=== PATIENT | female | born 1990 ===

== ENCOUNTER 2018-04-18 18:48 | Emergency (ER) | payer MEDICAID ==
[2018-04-18 19:05] VITALS: BP 104/68; PULSE 96; RESP 20; TEMP 99.8; O2SAT 100
[2018-04-18 20:17] LABS: SQUAMOUS EPITHIAL 6 /hpf (0-5); URINE BACTERIA RARE (<OCC); URINE BILIRUBIN NEGATIVE (NEGATIVE); URINE BLOOD 2+ (NEGATIVE); URINE CLARITY Hazy (Clear); URINE COLOR Yellow (YELLOW); URINE GLUCOSE (UA) NORMAL (Normal); URINE LEUKOCYTE ESTERASE 3+ Leu/uL (Negative); URINE PROTEIN NEGATIVE (NEGATIVE); URINE UROBILINOGEN NORMAL mg/dL (0.2-1.0)
--- NOTE | 2018-04-18 20:26 | C.PDOC ---
History Of Present Illness 27 y/o female presents to the ED complaining of worsening dysuria over the past 2 weeks. She also noticed light pink discharge when wiping this morning. Of note patient is currently , approximately 16 weeks gestational age, and has regular OB follow up. Her last ultrasound was 2 weeks ago, and was normal. Patient was seen here on 04/03 with mild UTI, and prescribed Macrobid with relief of symptoms. She has been trying [id number] UTI medication for the past week. Otherwise patient denies any fevers, chills, incontinence, hematuria, or abdominal pain. Time Seen by Provider: 04/18/18 19:23 Chief Complaint (Nursing): Female Genitourinary History Per: Patient History/Exam Limitations: no limitations Onset/Duration Of Symptoms: Days Current Symptoms Are (Timing): Still Present : 2 Para: 1 Past Medical History Reviewed: Historical Data, Nursing Documentation, Vital Signs Vital Signs: Last Vital Signs Temp 99.8 F H 04/18/18 19:05 Pulse 96 H 04/18/18 19:05 Resp 20 04/18/18 19:05 BP 104/68 04/18/18 19:05 Pulse Ox 100 04/18/18 20:39 - Medical History PMH: No Chronic Diseases Surgical History: No Surg Hx Family History: States: No Known Family Hx - Social History Hx Alcohol Use: No Hx Substance Use: No - Immunization History Hx Tetanus Toxoid Vaccination: No Hx Influenza Vaccination: No Review Of Systems Except As Marked, All Systems Reviewed And Found Negative. Constitutional: Negative for: Fever, Chills Gastrointestinal: Negative for: Abdominal Pain Genitourinary: Positive for: Dysuria, Vaginal Discharge. Negative for: Incontinence, Hematuria Physical Exam - Physical Exam Appears: Non-toxic, No Acute Distress Skin: Normal Color, Warm, Dry Head: Atraumatic, Normacephalic Eye(s): bilateral: Normal Inspection, PERRL, EOMI Nose: Normal Oral Mucosa: Moist Neck: Normal ROM, Supple Chest: Symmetrical Cardiovascular: Rhythm Regular, No Murmur Respiratory: Normal Breath Sounds, No Rales, No Rhonchi, No Wheezing Gastrointestinal/Abdominal: Soft, No Tenderness, Other (Gravid abdomen, consistent w/ 16 weeks gestation) Back: Normal Inspection, No CVA Tenderness, No Vertebral Tenderness Extremity: Bilateral: Atraumatic, Normal Color And Temperature, Normal ROM Pulses: Left Dorsalis Pedis: Normal, Right Dorsalis Pedis: Normal Neurological/Psych: Oriented x3, Normal Speech, Other (No focal deficits) Gait: Steady ED Course And Treatment O2 Sat by Pulse Oximetry: 100 (RA) Pulse Ox Interpretation: Normal Medical Decision Making Medical Decision Making: Initial Impression: 27 y/o female with UTI in Time: 19:39 Initial Plan: * Urinalysis * Urine culture * heart tones Labs reviewed, uA is indicative of UTI 20:23 Treated with pyrimidine and macrobid Progress/Updates: persistent UTI and , +FHT's 152 defer emergency preg US at this time Lab results and diagnosis discussed w/ patient. Patient is agreeable to and understanding of discharge plan. Advised to follow up with OB or return to the ER for any worsening symptoms. Disposition Doctor Will See Patient In The: Office Counseled Patient/Family Regarding: Studies Performed, Diagnosis - Disposition Referrals: Stephen Soares MD [Staff Provider] - Disposition: HOME/ ROUTINE Disposition Time: 20:26 Condition: GOOD Additional Instructions: sigue Macrobid (antibiotico) dos veces al lima por shell semana. no martina antes de terminar la receta Pyridium 100 mg (para dolor de orinar) 1 tableta cada 6 horas mehrdad necessario Cindy muchos liquidos Sigue con garcia OBGYN mehrdad necessario Autumn de yadira latando 152 bpm Prescriptions: Nitrofurantoin Macrocrystals [Macrobid] 1 cap PO BID #14 cap Phenazopyridine HCl [Pyridium] 100 mg PO TID PRN #6 tablet PRN Reason: dysuria Instructions: Urinary Tract Infection, Adult (DC), - The Fourth Month Forms: [employer] (Danish) Print Language: SOUTH KOREAN - Clinical Impression Clinical Impression: UTI (urinary tract infection) during - Scribe Statement The provider has reviewed the documentation as recorded by the Scribe (Darling Medina) Provider Attestation: All medical record entries made by the Scribe were at my direction and personally dictated by me. I have reviewed the chart and agree that the record accurately reflects my personal performance of the history, physical exam, medical decision making, and the department course for this patient. I have also personally directed, reviewed, and agree with the discharge instructions and disposition.
== END 2018-04-18 20:48 | disposition home or self-care (01) ==
LOC: C.ER 18:48
DX: O23.42 Unspecified infection of urinary tract in pregnancy, second trimester (principal); Z3A.16 16 weeks gestation of pregnancy

== ENCOUNTER 2018-04-29 14:37 | Emergency (ER) | payer MEDICAID ==
[2018-04-29 14:46] VITALS: O2SAT 100
[2018-04-29] MEDS ORDERED: Sodium Chloride 0.9% 1,000 ML IV ONE (15:23)
[2018-04-29] MEDS ORDERED: Sodium Chloride 0.9% 1,000 ML ONE (15:45)
[2018-04-29 15:55] LABS: BASO % 0.2 % (0.0-2.0); EOS % 0.1 % (0.0-4.0); HEMOGLOBIN 10.6 g/dL (11.0-16.0); LYMPH # 1.6 K/uL (1.0-4.3); LYMPH % 22.6 % (20.0-40.0); MEAN CELL VOLUME 77.5 fL (81.0-99.0); MEAN CORPUSCULAR HEMOGLOBIN 25.2 pg (27.0-31.0); MEAN CORPUSCULAR HGB CONC 32.5 g/dL (33.0-37.0); MEAN PLATELET VOLUME 8.7 fL (7.2-11.7); MONO # 0.4 K/uL (0.0-0.8); NEUT # 5.2 K/uL (1.8-7.0); NEUT % 72.1 % (50.0-75.0); RBC 4.19 Mil/uL (3.80-5.20); RED CELL DISTRIBUTION WIDTH 16.9 % (11.5-14.5); WHITE BLOOD COUNT 7.2 K/uL (4.8-10.8)
[2018-04-29 16:00] LABS: SQUAMOUS EPITHIAL 5 /hpf (0-5); URINE BACTERIA OCC (<OCC); URINE BILIRUBIN NEGATIVE (NEGATIVE); URINE BLOOD NEGATIVE (NEGATIVE); URINE CLARITY Hazy (Clear); URINE COLOR Yellow (YELLOW); URINE GLUCOSE (UA) NORMAL (Normal); URINE LEUKOCYTE ESTERASE TRACE Leu/uL (Negative); URINE PROTEIN 1+ mg/dL (NEGATIVE); URINE UROBILINOGEN NORMAL mg/dL (0.2-1.0)
--- NOTE | 2018-04-29 16:10 | C.PDOC ---
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 She reports initially she had a mild throat irritation and cough (coworkers had the same) and today when she went to work, she felt nauseous and had episodes of vomiting and crampy abdominal pain. She denies any shortness of breath, weakness, lightheadedness and offers no other medical complaints. She is concerned about possible "chemical exposure" and notified her melter supervisor but does not know what chemicals she may have been exposed to. She works with "[employer]". Her has been unremarkable to date. Time Seen by Provider: 04/29/18 15:13 Chief Complaint (Nursing): Medical Clearance History Per: Patient History/Exam Limitations: no limitations Onset/Duration Of Symptoms: Days (3) Current Symptoms Are (Timing): Still Present Additional History Per: Patient Past Medical History Reviewed: Historical Data, Nursing Documentation, Vital Signs Vital Signs: Last Vital Signs Temp 97.7 F 04/29/18 14:41 Pulse 97 H 04/29/18 14:41 Resp 18 04/29/18 14:41 BP 108/68 04/29/18 14:41 Pulse Ox 100 04/29/18 16:34 - Medical History PMH: No Chronic Diseases Surgical History: No Surg Hx Family History: States: Unknown Family Hx - Social History Hx Alcohol Use: No Hx Substance Use: No - Immunization History Hx Tetanus Toxoid Vaccination: No Hx Influenza Vaccination: No Review Of Systems Except As Marked, All Systems Reviewed And Found Negative. Constitutional: Negative for: Fever, Chills Cardiovascular: Negative for: Chest Pain Respiratory: Positive for: Cough. Negative for: Shortness of Breath Gastrointestinal: Positive for: Abdominal Pain. Negative for: Nausea, Vomiting Physical Exam - Physical Exam Appears: Non-toxic, No Acute Distress Skin: Normal Color, Warm, Dry Head: Atraumatic, Normacephalic Eye(s): bilateral: Normal Inspection Oral Mucosa: Moist Neck: Normal ROM, Supple Chest: Symmetrical Cardiovascular: Rhythm Regular Respiratory: Normal Breath Sounds Gastrointestinal/Abdominal: Normal Exam, Soft, No Tenderness Back: Normal Inspection Extremity: Normal ROM, No Pedal Edema Neurological/Psych: Oriented x3 ED Course And Treatment - Laboratory Results Result Diagrams: 04/29/18 15:50 06/06/18 15:50 Lab Interpretation: No Acute Changes O2 Sat by Pulse Oximetry: 100 (RA) Pulse Ox Interpretation: Normal Progress Note: Patient remains comfortable and has no nausea or vomiting in ED. Feetal haert tones audible in lower midline with rate 140. Reevaluation Time: 16:34 Reassessment Condition: Improved (after IV fluids and Zofran.) Medical Decision Making Medical Decision Making: Plan: -- Labs -- IV Fluids -- Zofran 4mg PO Progress: Disposition Counseled Patient/Family Regarding: Studies Performed, Diagnosis, Need For Followup - Disposition Referrals: Stephen Soares MD [Staff Provider] - Disposition: HOME/ ROUTINE Disposition Time: 16:29 Condition: STABLE Instructions: Nausea and Vomiting, Adult (DC), - The Fifth Month Forms: [employer] (North Korean) Print Language: SOUTH AFRICAN - Clinical Impression Clinical Impression: , Nausea & vomiting - Scribe Statement The provider has reviewed the documentation as recorded by the Scribe (Miranda Siddiqui) Provider Attestation: All medical record entries made by the Scribe were at my direction and personally dictated by me. I have reviewed the chart and agree that the record accurately reflects my personal performance of the history, physical exam, medical decision making, and the department course for this patient. I have also personally directed, reviewed, and agree with the discharge instructions and disposition.
[2018-04-29 16:12] LABS: ALBUMIN 3.5 g/dL (3.5-5.0); ALT/SGPT 11 U/L (9-52); AST/SGOT 13 U/L (14-36); BLOOD UREA NITROGEN 5 mg/dL (7-17); CALCIUM 8.8 mg/dl (8.6-10.4); GFR AFRICAN-AMERICAN > 60; GFR NON-AFRICAN AMERICAN > 60
[2018-04-29 17:07] VITALS: BP 100/62; PULSE 77; RESP 20; TEMP 98.5
== END 2018-04-29 17:12 | disposition home or self-care (01) ==
LOC: C.ER 14:37
DX: O21.9 Vomiting of pregnancy, unspecified (principal); Z3A.18 18 weeks gestation of pregnancy
CPT/HCPCS: 80053; 81001; 85025; 96360; 99283; J7030

== ENCOUNTER 2018-06-04 17:50 | Emergency (ER) | payer SELFPAY ==
--- NOTE | 2018-06-04 19:51 | OBHP ---
Datetime: 06/04/2018 19:41 IP Adm Impression: , intrauterine IP Admit Plan: Observation/Evaluation; Discharge home Admit Comment, IP Provider: 21 yo @ 21wks by lmp _ 1st trim us c/o bilateral inguinal pain inte rmittent. denies n/v, vag bleeding, pprom. +white d/c that is in clumps. c/o bilateral tension h/a. s tates is not sure if it is related to financial stress. 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 she is not w/ fob. pnc at [facility] pmhx _ pshx: dnies shx: denies etoh, drugs or tobacco nkda medic:Pnv i: 21 wks round ligament pain vag candidiasis tension perez/ p: reassured roung lig pain will resolve- etiology d/w pt. rth if abd increases in severity rx monistat 7 may take tylenol for tension h/a but not daily throughout day. tyl [id number] given head massage for h/a advised pt to f/u w/ home health care social worker in clinic for home situation nutrition reinforced. advised to d/c breastfeedng Pelvic Type - PN: Adequate Extremities - PN: Normal Abdomen - PN: Normal Lungs - PN: Normal Heart - PN: Normal Neurologic - PN: Normal HEENT - PN: Normal General - PN: Normal FHR - Baseline A Provider: 140 Membranes, Provider: Intact Contraction Comments Provider: no Comments, ACOG Physical Exam: sse: white curd like vag d/c; cl/th Pool Provider: Negative EGA AdmitDate IP: 21.0 Vital Signs Provider: Reviewed; Within Normal Limits IP Chief Complaint: Other Genitourinary Exam: Normal
[2018-06-04 20:07] VITALS: TEMP 98.3
[2018-06-05 00:09] VITALS: BP 97/58; PULSE 95; RESP 18; O2SAT 98
== END 2018-06-04 19:45 | disposition home or self-care (01) ==
LOC: C.EROB 17:50
DX: O26.892 Other specified pregnancy related conditions, second trimester (principal); R10.2 Pelvic and perineal pain; O98.812 Other maternal infectious and parasitic diseases complicating pregnancy, second trimester; B37.3 Candidiasis of vulva and vagina; Z3A.21 21 weeks gestation of pregnancy

== ENCOUNTER 2018-06-19 10:50 | Emergency (ER) | payer SELFPAY ==
[2018-06-19 12:16] LABS: SQUAMOUS EPITHIAL 24 /hpf (0-5); URINE BACTERIA RARE (<OCC); URINE BILIRUBIN NEGATIVE (NEGATIVE); URINE BLOOD NEGATIVE (NEGATIVE); URINE CLARITY Hazy (Clear); URINE COLOR Yellow (YELLOW); URINE GLUCOSE (UA) NORMAL (Normal); URINE LEUKOCYTE ESTERASE 2+ Leu/uL (Negative); URINE PROTEIN 1+ mg/dL (NEGATIVE); URINE UROBILINOGEN NORMAL mg/dL (0.2-1.0)
[2018-06-19 20:49] VITALS: BP 99/64; PULSE 89; TEMP 98.2
== END 2018-06-19 13:01 | disposition home or self-care (01) ==
LOC: C.EROB 10:50
DX: O26.892 Other specified pregnancy related conditions, second trimester (principal); R10.9 Unspecified abdominal pain; M54.9 Dorsalgia, unspecified; Z3A.23 23 weeks gestation of pregnancy

== ENCOUNTER 2018-06-26 13:10 | Emergency (ER) | payer SELFPAY ==
[2018-06-26 16:28] LABS: SQUAMOUS EPITHIAL 42 /hpf (0-5); URINE BACTERIA MANY (<OCC); URINE BILIRUBIN NEGATIVE (NEGATIVE); URINE BLOOD NEGATIVE (NEGATIVE); URINE CLARITY Hazy (Clear); URINE COLOR Yellow (YELLOW); URINE GLUCOSE (UA) NORMAL (Normal); URINE LEUKOCYTE ESTERASE 3+ Leu/uL (Negative); URINE PROTEIN NEGATIVE (NEGATIVE); URINE UROBILINOGEN NORMAL mg/dL (0.2-1.0)
--- NOTE | 2018-06-26 18:01 | OBHP ---
Datetime: 06/26/2018 13:30 IP Adm Impression: , intrauterine ; Intact Membranes IP Chief Complaint Other: Back pain radiating to her Righ LE Low abdominal sharp pains sporadic and with change in position Curly and persistent vaginal discharge with itching IP Admit Plan: Observation/Evaluation Admit Comment, IP Provider: 27 yo female with an IUP at 28 2/7 weeks per US on 04/03 at [facility] at 16 weeks and EDC of 09/16/18. Pt presented with C/O of severe back pain radiating to her Righ LE and for the past few weeks and worsening while she works on her feet all day. Only takes 1 15 mins break in the morning at work and 30 minutes for lunch. Pt also c/o of low abdominal sharp pains usually upon movement and for a short time. Pt seen at [facility] 4 times with this but minimal PNC C/O of thick, curly vaginal discharge associated with itching. Last visit to Hospital she was diag nosed with Cecile and given Rx for vaginal cream for 7 days but only used it 2 days. + Clinical Cecile Vaginitis Also c/o of Decreased movement today but + FM upon arrival and place on monitor Will monitor, send UA and assess accordingly Pelvic Type - PN: Adequate Extremities - PN: Normal Abdomen - PN: Normal Back - PN: Normal Breast - PN: Not Done Lungs - PN: Normal Heart - PN: Normal Thyroid - PN: Normal Neurologic - PN: Normal HEENT - PN: Normal General - PN: Normal Presentation-Admit: Vertex FHR - Baseline A Provider: 130 Membranes, Provider: Intact Contraction Comments Provider: Ocassional Comments, ACOG Physical Exam: SSE with thick, cottage cheese vaginal discharge and culture obtained and sent Gestation - Est Wks by US: 28 2/7 EGA AdmitDate IP: 24.1 Vital Signs Provider: Reviewed; Within Normal Limits IP Chief Complaint: Decreased movement; Maternal discomfort; evaluation NICHD Variability Prov Fetus A: Moderate 6-25bpm NICHD Accel Fetus A IP Provider: 10X10 NICHD Decel Fetus A IP Provider: None Dilatation, Provider: 0 Effacement, Provider: 0 Station, Provider: floating Genitourinary Exam: Normal DTRs - PN: Normal Datetime: 06/19/2018 11:56 IP Adm Impression Other: Back Pain Pool Provider: Negative
--- NOTE | 2018-06-26 19:36 | OBDCSUM ---
Datetime: 06/26/2018 17:28 Discharged to, Provider: Home Follow up at, Provider: [facility], [place] Disch Instr Activity: Normal activity Disch Instr Diet: Regular Discharge Diet restrict Prov: Please allow pt. to sit down for most of her working time and to have 15 min break in middle of AM _ PM every day, besides lunch time and for medical reasons. Discharge Instructions, Provider: Routine instructions given Discharge Time: 06/26/2018 17:28 Follow up in weeks, Provider: 06/29/18 Disch Referrals: None Disch Activity Restrictions: No exercising; No lifting; Minimize stair-climbing; No sexual activity; Nothing in vagina - [place], tampons, douche Discharge Comment, Provider: 37 yo female with IUP at 28+ weeks FHT/s reassuring and no contractions C/O of Decrease FM but audible and palpable movement and pt then admitted to feeling adequate FM t hroughout her visit Kick Count instructions given by Nursing Sciatic pain improving after Ibuprofen PO and rest Advised to take Ibuprofen prn for next 24-48 hours Note for work given to allow to take AM and PM breaks and to allow to work sitting rather than sta nding all day Cecile Vaginitis and treated with Diflucan and Rx given for 5 more days Round Ligament pains and aware of possibly improving with avoiding standing all day Minimal PNC but frequent Hospital visits and advised to keep Clinic appointment on 06/29 and regular Also advised to incresase po water and fiber intake Acute Hemorrhoiditis and Rx for Hydrocortisone 2.5% to appliy to area TID and to avoid constipatio n D/C Home in Stable and Satisfactory condition Discharge Diagnosis Prov Other: Sciatic pain Cecile Vaginitis RL pains
[2018-06-26 22:59] VITALS: BP 104/61; PULSE 98; RESP 20; TEMP 98; O2SAT 96
== END 2018-06-26 17:55 | disposition home or self-care (01) ==
LOC: C.EROB 13:10
DX: O26.892 Other specified pregnancy related conditions, second trimester (principal); M54.9 Dorsalgia, unspecified; M79.604 Pain in right leg; R10.30 Lower abdominal pain, unspecified; Z3A.24 24 weeks gestation of pregnancy